=== PATIENT | male | born 1955 | race Caucasian/White ===

== ENCOUNTER 2017-09-28 11:09 | Observation (INO) | payer BC ==
[2017-09-28] MEDS ORDERED: Famotidine 20 MG/2 ML SDV IVPUSH ONE (11:12)
[2017-09-28] MEDS ORDERED: Sodium Chloride 0.9% 10 ML Syringe FLUSH PRN ×2 (11:12→13:03)
--- NOTE | 2017-09-28 11:12 | EDM.PDOC ---
ED HPI GENERAL MEDICAL PROBLEM - General Chief Complaint: General Stated Complaint: Dizziness Time Seen by Provider: 09/28/17 11:10 Source of Information: Reports: Patient, Family (), Old Records (No [facility] records available) History Limitations: Reports: No Limitations - History of Present Illness INITIAL COMMENTS - FREE TEXT/NARRATIVE: The patient was brought to the emergency room by basic ambulance transfer with no therapy in route. Note that the patient did experience some nonspecific right -sided tinnitus during the last couple of days with previous history of bilateral tinnitus. At about 08:30 AM this morning the patient felt somewhat dizzy with 1-1/2 tablets of 325 mg of aspirin taken at that time, i.e., an additional half tablet was taken. Symptoms progressed throughout the morning at work with the patient losing his balance at about 11:05 hours this morning. No history of fall or injury. His dizziness progressed despite sitting down and is exacerbated by looking downward but not by head movement. The patient denies any chest pain/pressure, heart flutter, orthostasis, orthopnea, diaphoresis, paresthesias, recent decreased exercise tolerance, or any other anginal-type symptoms. No recent history of abdominal pain, heartburn, nausea, diarrhea, melena, gross hematochezia, or any food intolerance, including fatty foods, etc. with normal bowel movement earlier this morning. He denies any gross hematuria, colic, or other UTI symptoms. The patient also denies any recent fever, cough, wheezing, dyspnea, etc.. No history of recent headaches, visual changes, diplopia, change in mental status, or other change in neurological status. 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 Denies: Allergic Rhinitis, Cataract, Glaucoma, Macular Degeneration, Retinal Detachment Other HEENT History: He wears glasses. He does have some mild bilateral hearing loss with no therapy. Chronic tinnitus usually left-sided Cardiovascular History: Reports: Heart Murmur, High Cholesterol, PVD, Other ( See Below). Denies: Afib, Aneurysm, Arrhythmia, Blood Clots/VTE/DVT, CAD, Heart Failure, Hypertension, MA, PTCA, Syncope Other Cardiovascular History: Carotid occlusive disease requiring surgery as below. Benign cardiac murmur as a child Respiratory History: Reports: Intubation, Previous, Other (See Below). Denies: Asthma, Bronchitis, Recurrent, COPD, Intubation, Difficult, PE, Pneumothorax, Sleep Apnea, TB Other Respiratory History: Left Lower lobe pulmonary nodule by CT scan as below Gastrointestinal History: Reports: Cholelithiasis, Gastritis, GERD, Hiatal Hernia, Jaundice, PUD, Other (See Below). Denies: Bowel Obstruction, Celiac Disease, Chronic Constipation, Chronic Diarrhea, Colon Polyp, Diverticulosis, Fecal Incontinence, GI Bleed, Hepatitis, Inflammatory Bowel Disease, Irritable Bowel Syndrome, Pancreatitis Other Gastrointestinal History: Previous problems with possible cholelithiasis as a teenager and his early 20s but no surgery required. Additional history of gastric ulcers as a teenager and in his early 20s. Genitourinary History: Reports: BPH. Denies: Acute Renal Failure, Chronic Renal Insuffiency, Renal Calculus, STD, Urinary Incontinence, UTI, Recurrent Musculoskeletal History: Reports: Arthritis, Back Pain, Chronic, Fracture, Gout , Neck Pain, Chronic, Osteoarthritis, Other (See Below). Denies: Amputation, Osteoporosis, RA, SLE Other Musculoskeletal History: Cervical fracture on 07/08/10 secondary to trauma requiring surgeries as below Neurological History: Reports: Headaches, Chronic. Denies: Cerebral Aneurysms, Concussion, CVA, Head Trauma, Migraines, MS, Neuropathy, Diabetic, Neuropathy, Peripheral, Parkinson's, Seizure, TIA Psychiatric History: Reports: Addiction, Psych Hospitalization(s), Other (See Below). Denies: Abuse, Victim of, ADD, ADHD, Anxiety, Depression, PTSD, Suicide Attempt, Suicidal Ideation Other Psychiatric History: History of alcohol abuse requiring inpatient treatment 2 as below Endocrine/Metabolic History: Reports: None. Denies: Diabetes, Type I, Diabetes , Type II, Hypothyroidism, IDDM, Osteoporosis Hematologic History: Reports: None. Denies: Anemia, Blood Transfusion(s), Iron Deficiency Immunologic History: Reports: None. Denies: AIDS, HIV, SLE Oncologic (Cancer) History: Reports: None. Denies: Basal Cell Carcinoma, Hodgkin's Lymphoma, Leukemia, Lymphoma, Malignant Melanoma, Non-Hodgkin's Lymphoma, Prostate, Squamous Cell Carcinoma Dermatologic History: Reports: None. Denies: Eczema, Psoriasis - Infectious Disease History Infectious Disease History: Reports: Mumps. Denies: C-Difficile, Chicken Pox ( unsure), Measles, Meningitis, Mononucleosis, Pertussis (Whooping Cough), Rheumatic Fever, Rubella, Scarlet Fever, Shingles, TB, VRE - Past Surgical History Head Surgeries/Procedures: Reports: None HEENT Surgical History: Reports: Oral Surgery. Denies: Adenoidectomy, Cataract Surgery, Eye Surgery, Laser Surgery, LASIK, Myringotomy w Tube(s), Naso-Sinus Surgery, Tonsillectomy Other HEENT Surgeries/Procedures: [place] teeth extraction X 3 about age 52 with additional teeth extractions Cardiovascular Surgical History: Reports: Carotid Endarterectomy, Vascular Surgery, Other (See Below). Denies: Coronary Artery Bypass, Percutaneous Transluminal Angioplasty Other Cardiovascular Surgeries/Procedures: Right-sided carotid surgery in 2011 Respiratory Surgical History: Reports: None. Denies: Thoracentesis GI Surgical History: Reports: Colonoscopy, EGD, Hernia, Inguinal, Other (See Below). Denies: Appendectomy, Cholecystectomy, Hernia, Abdominal, Hernia Repair /Other Other GI Surgeries/Procedures: Colonoscopy in about 2011. Last EGD in 2013. Right inguinal hernia repair at age 7 Male Surgical History: Reports: Circumcision, Other (See Below). Denies: Vasectomy Other Male Surgeries/Procedures: Circumcision as an Endocrine Surgical History: Reports: None. Denies: Thyroid Biopsy Neurological Surgical History: Reports: C-Spine, Laminectomy, Spinal Fusion, Other (See Below). Denies: Discectomy, Lumbar Spine, Sacral Spine, Scoliosis, Thoracic Spine, Vertebroplasty Other Neurological Surgeries/Procedures: C-spine fusion of C3C7 secondary to trauma initially in 2011, then repeat procedures including laminectomy in 2013 and in 2014 Musculoskeletal Surgical History: Denies: Arthroscopic Procedure, Carpal Tunnel , Ganglion Cyst, Joint Replacement, ORIF, Shoulder Surgery Oncologic Surgical History: Reports: None Dermatological Surgical History: Reports: None - Past Imaging History Past Imaging History: Reports: Carotid US (January 2017 with no results available) , CAT Scan (CT of the chest using cardiac protocol and coronary calcium determination on 02/09/17), Holter Monitor, Ultrasound ([place] aortic ultrasound in January 2017 with results not available). Denies: Angiography Social & Family History - Family History HEENT: Reports: Glaucoma, Other (See Below). Denies: Macular Degeneration, Retinal Detachment Other HEENT Family History: Mother with glaucoma Cardiac: Reports: CAD, High Cholesterol, MA, Other (See Below). Denies: Afib, Aneurysm, Arrhythmia, Blood Clots/VTE/DVT, Bypass, Heart Failure, Hypertension, Pacemaker, Stent, Syncope Other Cardiac Family History: Mother with fatal MA at age 76 with history of hyperlipidemia Respiratory: Reports: COPD, Other (See Below). Denies: Asthma, PE, Pneumothorax Other Respiratory Family Hisory: Parents with oxygen dependent COPD with history of tobacco use GI: Reports: Cholelithiasis, Other (See Below). Denies: Celiac Disease, Colon Polyps, GERD, GI bleed, Hepatitis, Inflammatory Bowel Disease, Irritable Bowel Syndrome, Pancreatitis, PUD Other GI Family History: son with cholelithiasis : Reports: None. Denies: Dialysis, Renal Calculus, Renal Disease/ Insufficiency OBGYN: Reports: None. Denies: Endometriosis, Recurrent Spontaneous Musculoskeletal: Reports: None. Denies: Gout, RA, SLE Neurological: Denies: Alzheimers Disease, Cerebral Aneurysms, CVA, Dementia, Migraines, MS, Parkinson's, Seizure, TIA Psychiatric: Denies: Abuse, Victim of, ADD, ADHD, Anxiety, Depression, Psych Hospitalization(s), PTSD, Suicide Attempt Endocrine/Metabolic: Reports: Diabetes, type II, Other (See Below). Denies: Diabetes, Gestational, Diabetes, Type I, Diabetes Mellitus, Type 3c, Hypothyroidism, IDDM Other Endocrine/Metabolic Family History: Father with AODM Hematologic: Reports: None. Denies: Anemia, Transfusion Reaction Immunologic: Reports: Other (See Below). Denies: AIDS, HIV, SLE Other Immunologic Family History: Son with Sjogren's syndrome Dermatologic: Reports: None. Denies: Eczema, Psoriasis Oncologic: Reports: Ovarian, Other (See Below). Denies: Breast, Cervix, Colon, Hodgkin's Lymphoma, Leukemia, Lymphoma, Non-Hodgkin's Lymphoma, Prostate, Skin, Uterine Other Oncologic Family History: Sister with ovarian cancer in her 40s - Tobacco Use Smoking Status *Q: Former Smoker Tobacco Use Within Last Twelve Months: No Years of Tobacco use: 34 Packs/Tins Daily: 2 (Average use between 13 packs per day between ages 23 and 57 with chewing tobacco use between ages 52 and 57) Used Tobacco, but Quit: Yes Smoking Cessation Information Provided To Patient: No Second Hand Smoke Exposure: Yes Source of Second Hand Smoke Exposure: smokes Second Hand Smoke Education Provided: Yes - Caffeine Use Caffeine Use: Reports: Soda (1 soda per week and), Tea (2 cups per day). Denies : Coffee, Energy Drinks - Alcohol Use Alcohol Use History: Yes Days Per Week of Alcohol Use: 0 (Previous history of alcohol abuse with discontinuation at age 41) Number of Drinks Per Day: 0 Total Drinks Per Week: 0 Alcohol Use in Last Twelve Months: No - Recreational Drug Use Recreational Drug Use: Yes Drug Use in Last 12 Months: No Recreational Drug Type: Reports: Marijuana/Hashish (Daily marijuana use in his 20s). 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 ED EXAM, GENERAL - Physical Exam Exam: See Below Exam Limited By: No Limitations General Appearance: Alert, WD/WN, No Apparent Distress Eye Exam: Bilateral Eye: EOMI, Normal Fundi, Normal Inspection (No nystagmus including with head movement. Patient wearing glasses), PERRL Ears: Normal External Exam, Normal Canal, Hearing Loss (Mild to moderate bilateral) Nose: Normal Inspection, Normal Mucosa, No Blood Throat/Mouth: Normal Inspection, Normal Lips, Normal Teeth (Multiple missing teeth), Normal Gums, Normal Oropharynx, Normal Voice, No Airway Compromise. No : Dysphagia, Perioral Cyanosis Head: Atraumatic, Normocephalic. No: Facial Swelling, Facial Tenderness, Sinus Tenderness Neck: Supple, Non-Tender, Full Range of Motion, Carotid Bruit (Bilateral carotid bruitsmild), Other (Large anterolateral scar secondary to previous carotid surgery). No: Lymphadenopathy (L), Lymphadenopathy (R), Thyromegaly Respiratory/Chest: No Respiratory Distress, Lungs Clear, Normal Breath Sounds, No Accessory Muscle Use, Chest Non-Tender. No: Pleural Rub, Retractions Cardiovascular: Normal Peripheral Pulses, Regular Rate, Rhythm, No Edema, No Gallop, No JVD, No Murmur, No Rub. No: Gallop/S3, Gallop/S4, Friction Rub Peripheral Pulses: 2+: Radial (L), Radial (R), Dorsalis Pedis (L), Dorsalis Pedis (R) GI/Abdominal: Normal Bowel Sounds, Soft, Non-Tender, No Organomegaly, No Distention, No Abnormal Bruit, No Mass, Pelvis Stable. No: Guarding (Male) Exam: Deferred Rectal (Males) Exam: Deferred Back Exam: Normal Inspection, Full Range of Motion. No: CVA Tenderness (L), CVA Tenderness (R), Muscle Spasm Extremities: Normal Inspection, Normal Range of Motion, Non-Tender, No Pedal Edema, Normal Capillary Refill. No: Rupal's Sign Neurological: Alert, Oriented, CN II-XII Intact, Normal Cognition, Normal Gait, Normal Reflexes (Negative Babinski's, finger to nose, and pronator rotation tests. No evidence of facial paresis, tongue deviation, orthostasis, etc.. Excellent reverse thought processes.), No Motor/Sensory Deficits Psychiatric: Normal Affect, Normal Mood Skin Exam: Warm, Dry, Intact, Normal Color, No Rash. No: Diaphoretic, Ecchymosis, Petechiae, Wound/Incision Lymphatic: No Adenopathy EKG INTERPRETATION EKG Date: 09/28/17 Time: 11:32 Rhythm: NSR Rate (Beats/Min): 62 [place]: Normal (Neutral cardiac axis) P-Wave: Enlarged (Moderate diffuse biphasic P waves with mild poor R-wave progression in the anterior leads) QRS: RBBB (QRS interval of 0.12 seconds representing a complete right bundle branch block with T-wave inversions in leads V1 and possibly extending into lead V2) ST-T: Other (As above) QT: Normal IA/PQ Interval: 0.17 seconds Comparison: NA - No Prior EKG EKG Interpretation Comments: 1. Possible anterior wall cardiac ischemia 2. Atrial enlargement-left 3. Newly diagnosed complete right bundle branch block Course - Vital Signs Last Recorded V/S: Last Vital Signs Temp 36.2 C 09/28/17 11:10 Pulse 65 09/28/17 12:29 Resp 13 09/28/17 12:29 BP 144/79 H 09/28/17 12:29 Pulse Ox 100 09/28/17 12:29 Vital Signs - 24 hr 09/28/17 09/28/17 09/28/17 11:10 11:15 11:53 Temperature [ 36.2 C Oral] Pulse, 65 66 67 Peripheral [ Pulse Oximetry] Respiratory 16 16 13 Rate Blood Pressure 142/82 H 141/79 H 150/81 H [Right Upper Arm] O2 Sat by Pulse 100 100 100 Oximetry 09/28/17 09/28/17 12:07 12:29 Temperature [ Oral] Pulse, 68 65 Peripheral [ Pulse Oximetry] Respiratory 17 13 Rate Blood Pressure 144/85 H 144/79 H [Right Upper Arm] O2 Sat by Pulse 100 100 Oximetry - Orders/Labs/Meds Orders: Active Orders 24 hr Category Date Time Status Blood Glucose Check, Bedside [RC] STAT Care 09/28/17 11:12 Active Cardiac Monitoring [RC] STAT Care 09/28/17 11:12 Active EKG Documentation Completion [RC] ASDIRECTED Care 09/28/17 11:12 Active NIH Stroke Scale [RC] ASDIRECTED Care 09/28/17 11:12 Active Oxygen Therapy, ED [RC] CONTINUOUS Care 09/28/17 11:12 Active Peripheral IV Care [RC] . DIRECTED Care 09/28/17 11:12 Active Pulse Oximetry [RC] CONTINUOUS Care 09/28/17 11:12 Active Up With Assistance [RC] ASDIRECTED Care 09/28/17 11:12 Active Vital Signs [RC] PFP Care 09/28/17 11:12 Active Nothing per Oral Now Diet [DIET] Diet 09/28/17 Breakfast Active Chest 1V Frontal [CR] Stat Exams 09/28/17 11:12 Ordered Head wo Cont [CT] Stat Exams 09/28/17 11:12 Ordered PROLACTIN [REF] Stat Lab 09/28/17 11:12 Ordered Sodium Chloride 0.9% [Saline Flush] Med 09/28/17 11:12 Active 10 ml FLUSH ASDIRECTED PRN Obtain Past Medical Record [OM.PC] Stat Oth 09/28/17 11:12 Active Peripheral IV Insertion Adult [OM.PC] Stat Oth 09/28/17 11:12 Ordered Resuscitation Status Stat Resus Stat 09/28/17 11:12 Ordered Medication Orders Enoxaparin Sodium (Lovenox) 80 mg SUBCUT Q24H [facility] Last Admin: 09/28/17 12:47 Dose: 80 mg Sodium Chloride (Saline Flush) 10 ml FLUSH ASDIRECTED PRN PRN Reason: Keep Vein Open Last Admin: 09/28/17 12:03 Dose: 10 ml Labs: Laboratory Tests 09/28/17 09/28/17 09/28/17 Range/Units 11:15 11:15 11:15 WBC 7.0 (4.0-10.2) K/uL RBC 4.32 L (4.33-5.41) M/uL Hgb 14.6 (13.1-16.8) g/dL Hct 42.4 (39.0-49.0) % MCV 98.1 H (84.0-98.0) fL MCH 33.8 H (28.2-33.3) pg MCHC 34.4 (31.7-36.0) g/dL RDW 12.4 (11.2-14.1) % Plt Count 178 (150-350) K/uL Neut % (Auto) 53.4 (45.0-80.0) % Lymph % (Auto) 29.5 (10.0-50.0) % Bennett % (Auto) 12.4 (2.0-14.0) % Eos % (Auto) 4.3 (0.0-5.0) % Baso % (Auto) 0.4 (0.0-2.0) % Neut # (Auto) 3.75 (1.40-7.00) K/uL Lymph # (Auto) 2.07 (0.50-3.50) K/uL Bennett # (Auto) 0.87 (0.00-1.00) K/uL Eos # (Auto) 0.30 (0.00-0.50) K/uL Baso # (Auto) 0.03 (0.00-0.20) K/uL PT 10.3 (9.8-11.7) SEC INR 1.0 APTT 22.5 (22.1-29.8) SEC D-Dimer, Quantitative < 100 (0-400) ng/mL Sodium (136-145) mmol/L Potassium (3.5-5.1) mmol/L Chloride (98-107) mmol/L Carbon Dioxide (21.0-32.0) mmol/L BUN (7-18) mg/dL Creatinine (0.51-1.17) mg/dL Est Cr Clr Drug Dosing mL/min Estimated GFR (MDRD) mL/min Glucose (74-106) mg/dL Lactic Acid (0.4-2.0) mmol/L Uric Acid (2.6-7.2) mg/dL Calcium (8.5-10.1) mg/dL Magnesium (1.8-2.4) mg/dL Total Bilirubin (0.2-1.0) mg/dL AST (15-37) U/L ALT (12-78) U/L Alkaline Phosphatase (46-116) IU/L Creatine Kinase (26-308) U/L Creatine Kinase Index (0.0-2.5) % CK-MB (CK-2) (0.00-3.60) ng/mL Troponin I (0.000-0.056) ng/mL NT-Pro-B Natriuret Pep (0-125) pg/mL Total Protein (6.4-8.2) g/dL Albumin (3.4-5.0) g/dL TSH, Ultra Sensitive (0.358-3.740) mIU/mL 09/28/17 09/28/17 Range/Units 11:15 11:15 WBC (4.0-10.2) K/uL RBC (4.33-5.41) M/uL Hgb (13.1-16.8) g/dL Hct (39.0-49.0) % MCV (84.0-98.0) fL MCH (28.2-33.3) pg MCHC (31.7-36.0) g/dL RDW (11.2-14.1) % Plt Count (150-350) K/uL Neut % (Auto) (45.0-80.0) % Lymph % (Auto) (10.0-50.0) % Bennett % (Auto) (2.0-14.0) % Eos % (Auto) (0.0-5.0) % Baso % (Auto) (0.0-2.0) % Neut # (Auto) (1.40-7.00) K/uL Lymph # (Auto) (0.50-3.50) K/uL Bennett # (Auto) (0.00-1.00) K/uL Eos # (Auto) (0.00-0.50) K/uL Baso # (Auto) (0.00-0.20) K/uL PT (9.8-11.7) SEC INR APTT (22.1-29.8) SEC D-Dimer, Quantitative (0-400) ng/mL Sodium 139 (136-145) mmol/L Potassium 4.0 (3.5-5.1) mmol/L Chloride 103 (98-107) mmol/L Carbon Dioxide 27.7 (21.0-32.0) mmol/L BUN 29 H (7-18) mg/dL Creatinine 0.80 (0.51-1.17) mg/dL Est Cr Clr Drug Dosing 104.58 mL/min Estimated GFR (MDRD) > 60 mL/min Glucose 102 (74-106) mg/dL Lactic Acid 0.9 (0.4-2.0) mmol/L Uric Acid 5.2 (2.6-7.2) mg/dL Calcium 8.7 (8.5-10.1) mg/dL Magnesium 1.8 (1.8-2.4) mg/dL Total Bilirubin 0.3 (0.2-1.0) mg/dL AST 26 (15-37) U/L ALT 42 (12-78) U/L Alkaline Phosphatase 72 (46-116) IU/L Creatine Kinase 295 (26-308) U/L Creatine Kinase Index 2.4 (0.0-2.5) % CK-MB (CK-2) 7.10 H* (0.00-3.60) ng/mL Troponin I 0.000 (0.000-0.056) ng/mL NT-Pro-B Natriuret Pep 46 (0-125) pg/mL Total Protein 7.0 (6.4-8.2) g/dL Albumin 3.7 (3.4-5.0) g/dL TSH, Ultra Sensitive 1.185 (0.358-3.740) mIU/mL Meds: Medications Generic Name Dose Route Start Last Admin Trade Name Freq PRN Reason Stop Dose Admin Enoxaparin Sodium 80 mg 09/28/17 12:40 09/28/17 12:47 Lovenox SUBCUT 80 mg Q24H [facility] Administration Sodium Chloride 10 ml 09/28/17 11:12 09/28/17 12:03 Saline Flush FLUSH 10 ml ASDIRECTED PRN Administration Keep Vein Open Discontinued Medications Generic Name Dose Route Start Last Admin Trade Name Freq PRN Reason Stop Dose Admin Famotidine 40 mg 09/28/17 11:12 09/28/17 11:25 Pepcid IVPUSH 09/28/17 11:13 40 mg ONETIME ONE Administration Ticagrelor 180 mg 09/28/17 11:57 09/28/17 12:01 Brilinta PO 09/28/17 11:58 180 mg ONETIME ONE Administration - Radiology Interpretation Free Text/Narrative:: engine monitor shows normal sinus rhythm heart rate in the 60s but no ectopy or arrhythmia Chest x-ray, portable, shows evidence of some mild to moderate pulmonary obstructive disease with mildly prominent proximal aortic arch without evidence of an aneurysm. No CHF, pulmonary infiltrates, pneumothorax, etc. Telephone consultation at 20:50 5 AM with the radiology department at [facility] with negative CT scan of the head without contrast and official report received prior to patient's admission CT Results Date: 09/28/17 CT Results Time: 11:55 Departure - Departure Time of Disposition: 12:50 Disposition: Refer to Observation Condition: Good Clinical Impression: Dizziness, Carotid artery disease, Hyperlipidemia, Peptic reflux disease, Right bundle branch block (RBBB), Osteoarthritis, COPD (chronic obstructive pulmonary disease), Tobacco abuse counseling - Discharge Information - Problem List & Annotations (1) Dizziness SNOMED Code(s): 271434275 Code(s): R42 - DIZZINESS AND GIDDINESS Status: Acute Priority: High Current Visit: Yes Onset Date: 09/28/17 Annotation/Comment:: Long history of bilateral tinnitus and hearing loss with no workup to this point for Mnire' s disease. Consider ENT consultation once his cardiac status has been determined. Note positive CK-MB and borderline elevated cardiac index as above. No chest pain or other anginal-type symptoms with chest pain protocol not initiated in the emergency room. Patient did take aspirin prior to arrival as above. Additional Brilinta was started once CT scan results of the head were obtained. Note no neurological deficits or evidence of CVA. Continue neurological checks with vitals. Telephone consultation at 12:[address] Ruvalcaba, spectral scientist at [facility], who recommends that IV heparin therapy not be initiated at this time unless his cardiac enzymes progress and/or his troponin I becomes positive. Subcutaneous Lovenox at cardiac dose for now. Initiate standard rule out MA orders with patient placed in observation status with further cardiology consultation depending on his clinical course. Cardiolite stress test on an outpatient basis strongly recommended secondary to his multiple cardiac risk factors. (2) Carotid artery disease SNOMED Code(s): 880425778 Code(s): I77.9 - DISORDER OF ARTERIES AND ARTERIOLES, UNSPECIFIED Status: Chronic Priority: Medium Current Visit: Yes Annotation/Comment:: Note previous right-sided carotid endarterectomy with apparent recent carotid artery Doppler studies at [facility] as above with no results available. Continue to observe closely by his regular providers Qualifiers: Laterality: bilateral Qualified Code(s): I77.9 - Disorder of arteries and arterioles, unspecified (3) Hyperlipidemia SNOMED Code(s): 32846065 Code(s): E78.5 - HYPERLIPIDEMIA, UNSPECIFIED Status: Chronic Priority: Medium Current Visit: Yes Annotation/Comment:: Not currently under therapy. Lipid panel and glycosylated hemoglobin in the a.m. Patient would benefit from statin therapy secondary to his history of carotid occlusive disease Qualifiers: Hyperlipidemia type: unspecified Qualified Code(s): E78.5 - Hyperlipidemia , unspecified (4) Peptic reflux disease SNOMED Code(s): 92170772 Code(s): K21.9 - GASTRO-ESOPHAGEAL REFLUX DISEASE WITHOUT ESOPHAGITIS Status: Chronic Priority: Medium Current Visit: Yes Annotation/Comment:: Current abdominal complaints or evidence of GI bleed. High-dose IV Pepcid given in the emergency room as GI prophylaxis (5) Right bundle branch block (RBBB) SNOMED Code(s): 69431155 Code(s): I45.10 - UNSPECIFIED RIGHT BUNDLE-BRANCH BLOCK Status: Acute Priority: Medium Current Visit: Yes Onset Date: 09/28/17 Annotation/ Comment:: As above. Repeat EKG in the a.m. (6) Osteoarthritis SNOMED Code(s): 791668907 Code(s): M19.90 - UNSPECIFIED OSTEOARTHRITIS, UNSPECIFIED SITE Status: Chronic Priority: Medium Current Visit: Yes Annotation/Comment:: Stable by patient history including no recent history of gout attacks, etc. Qualifiers: Osteoarthritis location: multiple joints Osteoarthritis type: primary Qualified Code(s): M15.0 - Primary generalized (osteo)arthritis (7) COPD (chronic obstructive pulmonary disease) SNOMED Code(s): 18637615 Code(s): J44.9 - CHRONIC OBSTRUCTIVE PULMONARY DISEASE, UNSPECIFIED Status : Acute Priority: Medium Current Visit: Yes Onset Date: 09/28/17 Annotation/Comment:: No recent history of fever or bronchitic type symptoms. Note COPD by chest x-ray with additional previous history of tobacco use. Consider PFTs once his cardiac status has been determined. Qualifiers: COPD type: emphysema Emphysema type: panlobular Qualified Code(s): J43.1 - Panlobular emphysema (8) Tobacco abuse counseling SNOMED Code(s): 610519964, 534098024 Code(s): Z71.6 - TOBACCO ABUSE COUNSELING Status: Chronic Priority: Medium Current Visit: Yes Annotation/Comment:: Tobacco smoke cessation information be provided to the patient at time of discharge. Patient's still smokes. Note tobacco history in the patient as above - Problem List Review Problem List Initiated/Reviewed/Updated: Yes - My Orders Last 24 Hours: My Active Orders 09/28/17 11:12 Blood Glucose Check, Bedside [RC] STAT Cardiac Monitoring [RC] STAT EKG Documentation Completion [RC] ASDIRECTED NIH Stroke Scale [RC] ASDIRECTED Oxygen Therapy, ED [RC] CONTINUOUS Peripheral IV Care [RC] . DIRECTED Pulse Oximetry [RC] CONTINUOUS Up With Assistance [RC] ASDIRECTED Vital Signs [RC] PFP Chest 1V Frontal [CR] Stat Head wo Cont [CT] Stat PROLACTIN [REF] Stat Sodium Chloride 0.9% [Saline Flush] 10 ml FLUSH ASDIRECTED PRN Obtain Past Medical Record [OM.PC] Stat Peripheral IV Insertion Adult [OM.PC] Stat Resuscitation Status Stat 09/28/17 Breakfast Nothing per Oral Now Diet [DIET] - Assessment/Plan Admission H&P: Please use this note as an admission H&P Last 24 Hours: My Active Orders 09/28/17 11:12 Blood Glucose Check, Bedside [RC] STAT Cardiac Monitoring [RC] STAT EKG Documentation Completion [RC] ASDIRECTED NIH Stroke Scale [RC] ASDIRECTED Oxygen Therapy, ED [RC] CONTINUOUS Peripheral IV Care [RC] . DIRECTED Pulse Oximetry [RC] CONTINUOUS Up With Assistance [RC] ASDIRECTED Vital Signs [RC] PFP Chest 1V Frontal [CR] Stat Head wo Cont [CT] Stat PROLACTIN [REF] Stat Sodium Chloride 0.9% [Saline Flush] 10 ml FLUSH ASDIRECTED PRN Obtain Past Medical Record [OM.PC] Stat Peripheral IV Insertion Adult [OM.PC] Stat Resuscitation Status Stat 09/28/17 Breakfast Nothing per Oral Now Diet [DIET] Assessment:: As above Plan: As above. Extensive precautions were given to the patient and his , who are in agreement with the treatment plan. Celestino Javier M.D. at the [facility], assumes care in the a.m.. The patient's condition is stable enough for observation status and general supervision.
[2017-09-28 11:49] LABS: CHLORIDE,CL 103 mmol/L (98-107); SODIUM,NA 139 mmol/L (136-145)
[2017-09-28] MEDS ORDERED: Ticagrelor 90 MG Tab PO ONE (11:57)
[2017-09-28] MEDS: Enoxaparin 80 MG/0.8 ML Syringe SUBCUT SCH (12:47)
[2017-09-28] MEDS ORDERED: Acetaminophen 325 MG Tab PO PRN (13:00)
[2017-09-28] MEDS ORDERED: Temazepam 15 MG Cap PO PRN (13:03)
[2017-09-28] MEDS ORDERED: atorvaSTATin 10 MG Tab PO SCH (20:00)
[2017-09-29 07:50] LABS: CHLORIDE,CL 104 mmol/L (98-107); SODIUM,NA 141 mmol/L (136-145)
--- NOTE | 2017-09-29 09:58 | PCM.PN ---
- General Info Date of Service: 09/29/17 Admission Dx/Problem (Free Text): Dizziness Functional Status: Reports: Pain Controlled - Review of Systems General: Reports: No Symptoms HEENT: Reports: No Symptoms Pulmonary: Reports: No Symptoms Cardiovascular: Reports: No Symptoms Gastrointestinal: Reports: No Symptoms Genitourinary: Reports: No Symptoms Musculoskeletal: Reports: No Symptoms Skin: Reports: No Symptoms Neurological: Reports: No Symptoms Psychiatric: Reports: No Symptoms - Patient Data Vitals - Most Recent: Last Vital Signs Temp 97.5 F 09/29/17 08:00 Pulse 64 09/29/17 08:00 Resp 17 09/29/17 08:00 BP 128/78 09/29/17 08:00 Pulse Ox 100 09/29/17 08:00 Weight - Most Recent: 190 lb 4.8 oz I&O - Last 24 Hours: Intake & Output 09/28/17 09/29/17 09/29/17 22:59 06:59 14:59 Intake Total 480 Output Total 300 1500 Balance 180 -1500 Lab Results Last 24 Hours: Laboratory Results - last 24 hr 09/28/17 09/28/17 09/29/17 Range/Units 16:00 22:00 07:10 WBC 7.2 (4.0-10.2) K/uL RBC 4.56 (4.33-5.41) M/uL Hgb 15.3 (13.1-16.8) g/dL Hct 44.8 (39.0-49.0) % MCV 98.2 H (84.0-98.0) fL MCH 33.6 H (28.2-33.3) pg MCHC 34.2 (31.7-36.0) g/dL RDW 12.6 (11.2-14.1) % Plt Count 185 (150-350) K/uL Neut % (Auto) 57.5 (45.0-80.0) % Lymph % (Auto) 28.0 (10.0-50.0) % [place] % (Auto) 9.8 (2.0-14.0) % Eos % (Auto) 4.4 (0.0-5.0) % Baso % (Auto) 0.3 (0.0-2.0) % Neut # (Auto) 4.16 (1.40-7.00) K/uL Lymph # (Auto) 2.03 (0.50-3.50) K/uL [place] # (Auto) 0.71 (0.00-1.00) K/uL Eos # (Auto) 0.32 (0.00-0.50) K/uL Baso # (Auto) 0.02 (0.00-0.20) K/uL Sodium (136-145) mmol/L Potassium (3.5-5.1) mmol/L Chloride (98-107) mmol/L Carbon Dioxide (21.0-32.0) mmol/L BUN (7-18) mg/dL Creatinine (0.51-1.17) mg/dL Est Cr Clr Drug Dosing mL/min Estimated GFR (MDRD) mL/min Glucose (74-106) mg/dL Hemoglobin A1c (4.3-5.7) % Calcium (8.5-10.1) mg/dL Total Bilirubin (0.2-1.0) mg/dL AST (15-37) U/L ALT (12-78) U/L Alkaline Phosphatase (46-116) IU/L Creatine Kinase 260 206 (26-308) U/L Creatine Kinase Index 2.2 1.9 (0.0-2.5) % CK-MB (CK-2) 5.60 H* 4.00 H (0.00-3.60) ng/mL Troponin I 0.000 0.000 (0.000-0.056) ng/mL Total Protein (6.4-8.2) g/dL Albumin (3.4-5.0) g/dL Triglycerides (30-150) mg/dL Cholesterol (100-200) mg/dL LDL Cholesterol, Calc (0-100) mg/dL HDL Cholesterol (40-60) mg/dL 09/29/17 09/29/17 Range/Units 07:10 07:10 WBC (4.0-10.2) K/uL RBC (4.33-5.41) M/uL Hgb (13.1-16.8) g/dL Hct (39.0-49.0) % MCV (84.0-98.0) fL MCH (28.2-33.3) pg MCHC (31.7-36.0) g/dL RDW (11.2-14.1) % Plt Count (150-350) K/uL Neut % (Auto) (45.0-80.0) % Lymph % (Auto) (10.0-50.0) % [place] % (Auto) (2.0-14.0) % Eos % (Auto) (0.0-5.0) % Baso % (Auto) (0.0-2.0) % Neut # (Auto) (1.40-7.00) K/uL Lymph # (Auto) (0.50-3.50) K/uL [place] # (Auto) (0.00-1.00) K/uL Eos # (Auto) (0.00-0.50) K/uL Baso # (Auto) (0.00-0.20) K/uL Sodium 141 (136-145) mmol/L Potassium 4.4 (3.5-5.1) mmol/L Chloride 104 (98-107) mmol/L Carbon Dioxide 31.8 (21.0-32.0) mmol/L BUN 18 (7-18) mg/dL Creatinine 0.92 (0.51-1.17) mg/dL Est Cr Clr Drug Dosing 90.94 mL/min Estimated GFR (MDRD) > 60 mL/min Glucose 102 (74-106) mg/dL Hemoglobin A1c 6.0 H (4.3-5.7) % Calcium 9.1 (8.5-10.1) mg/dL Total Bilirubin 0.7 (0.2-1.0) mg/dL AST 22 (15-37) U/L ALT 39 (12-78) U/L Alkaline Phosphatase 71 (46-116) IU/L Creatine Kinase 157 (26-308) U/L Creatine Kinase Index 2.0 (0.0-2.5) % CK-MB (CK-2) 3.10 (0.00-3.60) ng/mL Troponin I 0.000 (0.000-0.056) ng/mL Total Protein 6.9 (6.4-8.2) g/dL Albumin 3.5 (3.4-5.0) g/dL Triglycerides 80 (30-150) mg/dL Cholesterol 156 (100-200) mg/dL LDL Cholesterol, Calc 87 (0-100) mg/dL HDL Cholesterol 53 (40-60) mg/dL Fabio Results Last 24 Hours: Microbiology 09/28/17 15:40 Stool Occult Blood (FABIO) - Final Stool / Feces NEGATIVE OCCULT BLOOD Med Orders - Current: Current Medications Acetaminophen (Tylenol) 650 mg PO Q4H PRN PRN Reason: Pain Atorvastatin Calcium (Lipitor) 20 mg PO BEDTIME [facility] Last Admin: 09/28/17 19:36 Dose: 20 mg Enoxaparin Sodium (Lovenox) 80 mg SUBCUT Q24H [facility] Last Admin: 09/28/17 12:47 Dose: 80 mg Sodium Chloride (Saline Flush) 10 ml FLUSH ASDIRECTED PRN PRN Reason: Keep Vein Open Last Admin: 09/28/17 12:03 Dose: 10 ml Sodium Chloride (Saline Flush) 10 ml FLUSH Q12HR PRN PRN Reason: Keep Vein Open Temazepam (Restoril) 15 mg PO BEDTIME PRN PRN Reason: Insomnia Discontinued Medications Famotidine (Pepcid) 40 mg IVPUSH ONETIME ONE Stop: 09/28/17 11:13 Last Admin: 09/28/17 11:25 Dose: 40 mg Ticagrelor (Brilinta) 180 mg PO ONETIME ONE Stop: 09/28/17 11:58 Last Admin: 09/28/17 12:01 Dose: 180 mg - Exam General: Alert, Oriented HEENT: Pupils Equal, Pupils Reactive, EOMI, Mucous Membr. Moist/[place] Neck: Supple Lungs: Clear to Auscultation, Normal Respiratory Effort Cardiovascular: Regular Rate, Regular Rhythm GI/Abdominal Exam: Normal Bowel Sounds, Soft, Non-Tender, No Organomegaly, No Distention, No Abnormal Bruit, No Mass, Pelvis Stable (Male) Exam: No Hernia, Normal Inspection, Normal Prostate, Circumcised Back Exam: Normal Inspection, Full Range of Motion Extremities: Normal Inspection, Normal Range of Motion, Non-Tender, No Pedal Edema, Normal Capillary Refill Skin: Warm, Dry, Intact Wound/Incisions: Healing Well Neurological: No New Focal Deficit Psy/Mental Status: Alert, Normal Affect, Normal Mood - Problem List & Annotations (1) Dizziness SNOMED Code(s): 388330733 Code(s): R42 - DIZZINESS AND GIDDINESS Status: Acute Priority: High Current Visit: Yes Onset Date: 09/28/17 Annotation/Comment:: Patient is seen today doing great no new symptoms symptoms stable at this time we will go ahead and do a carotid ultrasound secondary to previous history of carotid arterial disease (2) Carotid artery disease SNOMED Code(s): 321498648 Code(s): I77.9 - DISORDER OF ARTERIES AND ARTERIOLES, UNSPECIFIED Status: Chronic Priority: Medium Current Visit: Yes Qualifiers: Laterality: bilateral Qualified Code(s): I77.9 - Disorder of arteries and arterioles, unspecified Annotation/Comment:: Note previous right-sided carotid endarterectomy with apparent recent carotid artery Doppler studies at [facility] as above with no results available. Continue to observe closely by his regular providers - Problem List Review Problem List Initiated/Reviewed/Updated: Yes
[2017-09-29] MEDS: Enoxaparin 80 MG/0.8 ML Syringe SUBCUT SCH (11:52)
[2017-09-29] MEDS ORDERED: Cyclobenzaprine 10 MG Tab PO PRN (14:31)
--- NOTE | 2017-09-29 14:32 | PCM.DCSUM1 ---
Discharge Summary - Hospital Course Free Text/Narrative:: Patient is a 62-year-old who was admitted secondary to dizziness and history of carotid stenosis patient a improved his symptoms improved and today we went ahead and did a carotid ultrasound carotid ultrasound showed about 60% occlusion on the left and no occlusion on the right were waiting for final reports at this time patient may go home return to work as usual continue taking an aspirin a day patient should follow-up with primary physician - Discharge Data Discharge Date: 09/29/17 Discharge Disposition: Home, Self-Care 01 Condition: Good - Discharge Diagnosis/Problem(s) (1) Dizziness SNOMED Code(s): 895038466 ICD Code: R42 - DIZZINESS AND GIDDINESS Status: Acute Priority: High Current Visit: Yes Onset Date: 09/28/17 Problem Details: Patient is seen today doing great no new symptoms symptoms stable at this time we will go ahead and do a carotid ultrasound secondary to previous history of carotid arterial disease (2) Carotid artery disease SNOMED Code(s): 186413967 ICD Code: I77.9 - DISORDER OF ARTERIES AND ARTERIOLES, UNSPECIFIED Status: Chronic Priority: Medium Current Visit: Yes Problem Details: Note previous right-sided carotid endarterectomy with apparent recent carotid artery Doppler studies at [facility] in [place] as above with no results available. Continue to observe closely by his regular providers Qualifiers: Laterality: bilateral Qualified Code(s): I77.9 - Disorder of arteries and arterioles, unspecified - Discharge Plan Home Medications: Home Meds Aspirin [Ecotrin] 325 mg PO BEDTIME 09/28/17 [History] Cyclobenzaprine HCl [Cyclobenzaprine HCl] 10 mg PO BEDTIME PRN 09/28/17 [History ] Lansoprazole [Prevacid] 60 mg PO BEDTIME 09/28/17 [History] atorvaSTATin [Lipitor] 20 mg PO BEDTIME 09/28/17 [History] Patient Handouts: Ticagrelor oral tablet, Enoxaparin injection, Famotidine injection, Dizziness Forms: ED Department Discharge Referrals: Noe Aguiar MD [Physician] - PCP,None [Primary Care Provider] - - Discharge Summary/Plan Comment DC Time >30 min.: Yes Discharge Summary/Plan Comment: Patient may return to work without any limitations follow up with primary physician continue on an aspirin a day - Patient Data Vitals - Most Recent: Last Vital Signs Temp 98.1 F 09/29/17 12:00 Pulse 61 09/29/17 12:00 Resp 16 09/29/17 12:00 BP 118/71 09/29/17 12:00 Pulse Ox 98 09/29/17 12:00 Weight - Most Recent: 190 lb 4.8 oz I&O - Last 24 hours: Intake & Output 09/28/17 09/29/17 09/29/17 22:59 06:59 14:59 Intake Total 480 480 Output Total 300 1500 900 Balance 180 -1500 -420 Lab Results - Last 24 hrs: Laboratory Results - last 24 hr 09/28/17 09/28/17 09/29/17 Range/Units 16:00 22:00 07:10 WBC 7.2 (4.0-10.2) K/uL RBC 4.56 (4.33-5.41) M/uL Hgb 15.3 (13.1-16.8) g/dL Hct 44.8 (39.0-49.0) % MCV 98.2 H (84.0-98.0) fL MCH 33.6 H (28.2-33.3) pg MCHC 34.2 (31.7-36.0) g/dL RDW 12.6 (11.2-14.1) % Plt Count 185 (150-350) K/uL Neut % (Auto) 57.5 (45.0-80.0) % Lymph % (Auto) 28.0 (10.0-50.0) % [place] % (Auto) 9.8 (2.0-14.0) % Eos % (Auto) 4.4 (0.0-5.0) % Baso % (Auto) 0.3 (0.0-2.0) % Neut # (Auto) 4.16 (1.40-7.00) K/uL Lymph # (Auto) 2.03 (0.50-3.50) K/uL [place] # (Auto) 0.71 (0.00-1.00) K/uL Eos # (Auto) 0.32 (0.00-0.50) K/uL Baso # (Auto) 0.02 (0.00-0.20) K/uL Sodium (136-145) mmol/L Potassium (3.5-5.1) mmol/L Chloride (98-107) mmol/L Carbon Dioxide (21.0-32.0) mmol/L BUN (7-18) mg/dL Creatinine (0.51-1.17) mg/dL Est Cr Clr Drug Dosing mL/min Estimated GFR (MDRD) mL/min Glucose (74-106) mg/dL Hemoglobin A1c (4.3-5.7) % Calcium (8.5-10.1) mg/dL Total Bilirubin (0.2-1.0) mg/dL AST (15-37) U/L ALT (12-78) U/L Alkaline Phosphatase (46-116) IU/L Creatine Kinase 260 206 (26-308) U/L Creatine Kinase Index 2.2 1.9 (0.0-2.5) % CK-MB (CK-2) 5.60 H* 4.00 H (0.00-3.60) ng/mL Troponin I 0.000 0.000 (0.000-0.056) ng/mL Total Protein (6.4-8.2) g/dL Albumin (3.4-5.0) g/dL Triglycerides (30-150) mg/dL Cholesterol (100-200) mg/dL LDL Cholesterol, Calc (0-100) mg/dL HDL Cholesterol (40-60) mg/dL 09/29/17 09/29/17 Range/Units 07:10 07:10 WBC (4.0-10.2) K/uL RBC (4.33-5.41) M/uL Hgb (13.1-16.8) g/dL Hct (39.0-49.0) % MCV (84.0-98.0) fL MCH (28.2-33.3) pg MCHC (31.7-36.0) g/dL RDW (11.2-14.1) % Plt Count (150-350) K/uL Neut % (Auto) (45.0-80.0) % Lymph % (Auto) (10.0-50.0) % [place] % (Auto) (2.0-14.0) % Eos % (Auto) (0.0-5.0) % Baso % (Auto) (0.0-2.0) % Neut # (Auto) (1.40-7.00) K/uL Lymph # (Auto) (0.50-3.50) K/uL [place] # (Auto) (0.00-1.00) K/uL Eos # (Auto) (0.00-0.50) K/uL Baso # (Auto) (0.00-0.20) K/uL Sodium 141 (136-145) mmol/L Potassium 4.4 (3.5-5.1) mmol/L Chloride 104 (98-107) mmol/L Carbon Dioxide 31.8 (21.0-32.0) mmol/L BUN 18 (7-18) mg/dL Creatinine 0.92 (0.51-1.17) mg/dL Est Cr Clr Drug Dosing 90.94 mL/min Estimated GFR (MDRD) > 60 mL/min Glucose 102 (74-106) mg/dL Hemoglobin A1c 6.0 H (4.3-5.7) % Calcium 9.1 (8.5-10.1) mg/dL Total Bilirubin 0.7 (0.2-1.0) mg/dL AST 22 (15-37) U/L ALT 39 (12-78) U/L Alkaline Phosphatase 71 (46-116) IU/L Creatine Kinase 157 (26-308) U/L Creatine Kinase Index 2.0 (0.0-2.5) % CK-MB (CK-2) 3.10 (0.00-3.60) ng/mL Troponin I 0.000 (0.000-0.056) ng/mL Total Protein 6.9 (6.4-8.2) g/dL Albumin 3.5 (3.4-5.0) g/dL Triglycerides 80 (30-150) mg/dL Cholesterol 156 (100-200) mg/dL LDL Cholesterol, Calc 87 (0-100) mg/dL HDL Cholesterol 53 (40-60) mg/dL ILA Results - Last 24 hrs: Microbiology 09/28/17 15:40 Stool Occult Blood (ILA) - Final Stool / Feces NEGATIVE OCCULT BLOOD Med Orders - Current: Current Medications Acetaminophen (Tylenol) 650 mg PO Q4H PRN PRN Reason: Pain Atorvastatin Calcium (Lipitor) 20 mg PO BEDTIME [facility] Last Admin: 09/28/17 19:36 Dose: 20 mg Enoxaparin Sodium (Lovenox) 80 mg SUBCUT Q24H [facility] Last Admin: 09/29/17 11:52 Dose: 80 mg Sodium Chloride (Saline Flush) 10 ml FLUSH ASDIRECTED PRN PRN Reason: Keep Vein Open Last Admin: 09/28/17 12:03 Dose: 10 ml Sodium Chloride (Saline Flush) 10 ml FLUSH Q12HR PRN PRN Reason: Keep Vein Open Temazepam (Restoril) 15 mg PO BEDTIME PRN PRN Reason: Insomnia Discontinued Medications Famotidine (Pepcid) 40 mg IVPUSH ONETIME ONE Stop: 09/28/17 11:13 Last Admin: 09/28/17 11:25 Dose: 40 mg Ticagrelor (Brilinta) 180 mg PO ONETIME ONE Stop: 09/28/17 11:58 Last Admin: 09/28/17 12:01 Dose: 180 mg *Q Meaningful Use (DIS) - VTE *Q VTE Criteria *Q: - Stroke *Q Stroke Criteria *Q: - AMI *Q AMI Criteria *Q:
[2017-09-29] MEDS ORDERED: Aspirin 325 MG Tab.EC PO SCH (20:00)
[2017-09-29] MEDS ORDERED: LANSOPRAZOLE PO SCH (20:00)
== END 2017-09-29 14:50 | disposition home or self-care (01) ==
LOC: LL.ED 11:09 → LL.MS 12:36
PROVIDERS: ADMIT Family Medicine; ATTEND Family Medicine
DX: R42 Dizziness and giddiness (principal); I65.22 Occlusion and stenosis of left carotid artery; E78.00 Pure hypercholesterolemia, unspecified; I73.9 Peripheral vascular disease, unspecified; K21.9 Gastro-esophageal reflux disease without esophagitis; N40.0 Benign prostatic hyperplasia without lower urinary tract symptoms; M10.9 Gout, unspecified; I45.10 Unspecified right bundle-branch block; M15.0 Primary generalized (osteo)arthritis; J43.1 Panlobular emphysema; Z79.82 Long term (current) use of aspirin; Z79.899 Other long term (current) drug therapy; Z87.891 Personal history of nicotine dependence
CPT/HCPCS: 36415; 70450; 71045; 80053; 80061; 82272; 82550; 82553; 83036; 83605; 83735; 83880; 84146; 84443; 84484; 84550; 85025; 85379; 85610; 85730; 93005; 93880; 96372; 96374; 99285; A9270; G0378; J1650; J7050; S0028